=== PATIENT | female | born 1960 | race African-American/Black ===

== ENCOUNTER 2019-03-14 19:52 | Emergency (ER) | payer OTHER ==
[~2019-03-14] VITALS: Ht 167.6 cm; Wt 87.0 kg
[2019-03-14] MEDS ORDERED: SODIUM CHLORIDE 0.9% 1,000 ML IV ONE (21:00)
[2019-03-14] MEDS ORDERED: FUROSEMIDE 100MG/10ML VIAL IVP ONE (22:15)
[2019-03-14] MEDS ORDERED: IPRATROPIUM BROMIDE (0.02%) 0.5MG/2.5ML NEB HHN STA (22:43)
[2019-03-14] MEDS ORDERED: ALBUTEROL (0.083%) 2.5MG/3ML NEB HHN STA (22:43)
[2019-03-14 23:35] LABS: BASOPHILS % 0.4 % (0.0-2.0); HEMATOCRIT. 41.9 % (36.0-48.0); HEMOGLOBIN. 13.7 g/dL (12.0-16.0); LYMPHOCYTES % 18.8 % (20.0-50.0); MEAN CORPUSCULAR HEMOGLOBIN 31.8 pg (28.0-32.0); MEAN CORPUSCULAR VOLUME 96.7 fL (81.0-99.0); MEAN PLATELET VOLUME 9.4 fl (7.4-10.4); MONOCYTES % 14.1 % (2.0-8.0); NEUTROPHILS % 66.7 % (40.0-76.0); PLATELET 132 x1000/uL (130-400); RED BLOOD CELL COUNT 4.33 mill/uL (4.2-5.4); RED CELL DISTRIBUTION WIDTH 18.8 % (11.6-14.6)
[2019-03-14 23:37] LABS: CHLORIDE 105 mEq/L (98-107)
[2019-03-15 00:57] VITALS: BP 112/59
[2019-03-19] MEDS ORDERED: ALBU2.5V13 HHN ×2 (20:42)
[2019-03-19] MEDS ORDERED: FURO10VI3 IVP (20:42)
[2019-03-19] MEDS ORDERED: LOV40 SUBCUT (20:42)
== END 2019-03-15 01:59 | disposition short-term general hospital (02) ==
LOC: ER 19:52
DX: E87.70 Fluid overload, unspecified (principal); R55 Syncope and collapse; J45.909 Unspecified asthma, uncomplicated; I11.0 Hypertensive heart disease with heart failure; I50.9 Heart failure, unspecified; M79.602 Pain in left arm; M79.601 Pain in right arm; F17.200 Nicotine dependence, unspecified, uncomplicated
CPT/HCPCS: 36415; 71045; 73080; 73090; 73110; 80053; 84484; 85025; 93005; 94640; 96374; 99285; J1940; J7030; J7611; Z7610

== ENCOUNTER 2019-03-16 23:04 | Inpatient (IN) | payer OTHER ==
[~2019-03-16] VITALS: Ht 172.7 cm; Wt 92.1 kg
[2019-03-17] VITALS (10 sets, daily range): BP systolic 88–157; BP diastolic 44–76
[2019-03-17] MEDS ORDERED: FUROSEMIDE 40MG/4ML VIAL IV ONE
[2019-03-17 00:22] LABS: BASOPHILS % 0.3 % (0.0-2.0); EOSINOPHILS % 1.2 % (0.0-5.0); HEMATOCRIT. 43.5 % (36.0-48.0); LYMPHOCYTES % 30.9 % (20.0-50.0); MEAN CORPUSCULAR HEMOGLOBIN 32.1 pg (28.0-32.0); MEAN CORPUSCULAR VOLUME 99.7 fL (81.0-99.0); MONOCYTES % 11.4 % (2.0-8.0); NEUTROPHILS % 56.2 % (40.0-76.0); RED BLOOD CELL COUNT 4.36 mill/uL (4.2-5.4); RED CELL DISTRIBUTION WIDTH 20.2 % (11.6-14.6)
[2019-03-17 00:29] LABS: CHLORIDE 106 mEq/L (98-107)
[2019-03-17] MEDS ORDERED: INSULIN REGULAR (HUMULIN R) 300UNITS/3ML IV SCH (01:00)
[2019-03-17] MEDS ORDERED: DEXTROSE 50% WATER 50ML SYRINGE IV SCH (01:00)
[2019-03-17 01:38] LABS: MEAN PLATELET VOLUME 8.1 fl (7.4-10.4); PLATELET 108 x1000/uL (130-400)
[2019-03-17] MEDS ORDERED: CALCIUM GLUCONATE 1,000 MG in DEXT 5% WATER 100 ML IV SCH (02:00)
[2019-03-17] MEDS ORDERED: SODIUM POLYSTYRENE SULFONATE 15 G/60 ML BOT PO SCH (06:15)
[2019-03-17] MEDS ORDERED: LIDOCAINE HCL/PF 1% 2ML VIAL ONE (08:06)
[2019-03-17] MEDS ORDERED: ALBUTEROL (0.083%) 2.5MG/3ML NEB HHN PRN (08:30)
[2019-03-17] MEDS: ENOXAPARIN 30MG/0.3ML SYR SUBCUT SCH (08:40)
[2019-03-17] MEDS: FUROSEMIDE 40MG/4ML VIAL IVP SCH (08:40)
[2019-03-17] MEDS ORDERED: FURO-152 PO (09:27)
[2019-03-17] MEDS ORDERED: ALBUTEROL INH (09:27)
[2019-03-17 12:11] LABS: BG BASE EXCESS -5.1 mmol/L (-2.0-2.0); BG BILEVEL POS AIRWAY PRESSURE 15/5; BG CARBOXYHEMOGLOBIN 0.4 % (0.5-1.5); BG DEOXYHEMOGLOBIN 3.4 % (0.0-5.0); BG FRACTION INSPIRED OXYGEN 40; BG METHEMOGLOBIN 0.2 % (0.0-1.5); BG OXYGEN SATURATION 96.6 % (92.0-98.5); BG PCO2 42.6 mmHg (35.0-45.0); BG PO2 89.3 mmHg (75.0-100.0); BG SAMPLE SITE RIGHT RADIAL; BG TOTAL HEMOGLOBIN 13.1 g/dL (12.0-18.0); BG VENT MODE MASK - BIPAP
[2019-03-17 12:55] LABS: T4 FREE 1.2 ng/dL (0.76-1.46)
[2019-03-17] MEDS: ALBUTEROL (0.083%) 2.5MG/3ML NEB HHN SCH ×2 (15:33→21:05)
[2019-03-17 17:27] LABS: HEMATOCRIT. 38.3 % (36.0-48.0); HEMOGLOBIN. 12.5 g/dL (12.0-16.0); MEAN CORPUSCULAR VOLUME 98.2 fL (81.0-99.0); MEAN PLATELET VOLUME 8.9 fl (7.4-10.4); PLATELET 141 x1000/uL (130-400); RED CELL DISTRIBUTION WIDTH 19.7 % (11.6-14.6)
[2019-03-17 17:32] LABS: CREATINE KINASE MB FRACTION 11.7 ng/mL (0.5-3.6)
[2019-03-17 17:46] LABS: CHLORIDE 106 mEq/L (98-107)
[2019-03-17 18:35] LABS: CLARITY URINE CLOUDY (CLEAR); COLOR URINE DARK YELLOW (YELLOW); KETONES URINE TRACE (NEGATIVE); LEUKOCYTE ESTERASE URINE 2+ (NEGATIVE); NITRITE URINE NEGATIVE (NEGATIVE); OCCULT BLOOD URINE 1+ (NEGATIVE); PROTEIN URINE 1+ (NEGATIVE); SPECIFIC GRAVITY URINE 1.017 (1.005-1.030)
[2019-03-17 19:36] LABS: *AMPHETAMINES SCREEN URINE NEGATIVE (NEGATIVE)
[2019-03-17 19:37] LABS: *BARBITURATES SCREEN URINE NEGATIVE (NEGATIVE); *BENZODIAZEPINES SCREEN URINE NEGATIVE (NEGATIVE); *COCAINE SCREEN URINE NEGATIVE (NEGATIVE); METHADONE URINE SCREEN NEGATIVE (NEGATIVE); OPIATES URINE SCREEN NEGATIVE (NEGATIVE); PHENCYCLIDINE URINE SCREEN NEGATIVE (NEGATIVE)
[2019-03-17 19:37] LABS: NUCLEATED RED BLOOD CELLS 3 /100 WBC; PLATELET ESTIMATE NORMAL
[2019-03-17 19:38] LABS: CANNABINOID URINE SCREEN NEGATIVE (NEGATIVE)
[2019-03-18] VITALS (14 sets, daily range): BP systolic 95–112; BP diastolic 45–67
[2019-03-18 07:35] LABS: BASOPHILS % 0.3 % (0.0-2.0); EOSINOPHILS % 0.2 % (0.0-5.0); HEMATOCRIT. 36.8 % (36.0-48.0); HEMOGLOBIN. 11.8 g/dL (12.0-16.0); LYMPHOCYTES % 17.6 % (20.0-50.0); MEAN CORPUSCULAR HEMOGLOBIN 31.5 pg (28.0-32.0); MEAN CORPUSCULAR VOLUME 98.4 fL (81.0-99.0); NEUTROPHILS % 68.9 % (40.0-76.0); PLATELET 136 x1000/uL (130-400); RED BLOOD CELL COUNT 3.74 mill/uL (4.2-5.4); RED CELL DISTRIBUTION WIDTH 19.9 % (11.6-14.6)
[2019-03-18 07:36] LABS: INR 1.3; PROTHROMBIN TIME 13.3 sec (9.6-11.0)
[2019-03-18] MEDS: ALBUTEROL (0.083%) 2.5MG/3ML NEB HHN SCH ×3 (07:57→20:58)
[2019-03-18] MEDS: FUROSEMIDE 40MG/4ML VIAL IVP SCH ×2 (08:52→16:19)
[2019-03-18] MEDS: ENOXAPARIN 30MG/0.3ML SYR SUBCUT SCH (08:53)
[2019-03-18 09:03] LABS: CHLORIDE 105 mEq/L (98-107)
[2019-03-18 09:46] LABS: PHOSPHORUS 4.2 mg/dL (2.5-4.9)
[2019-03-18 09:50] LABS: CREATINE KINASE 275 IU/L (26-192)
[2019-03-18 09:53] LABS: CREATINE KINASE MB FRACTION 10.2 ng/mL (0.5-3.6)
[2019-03-18 14:58] LABS: HEPATITIS B SURFACE ANTIGEN NEGATIVE
[2019-03-19] VITALS (11 sets, daily range): BP systolic 90–123; BP diastolic 44–76
[2019-03-19] MEDS: ALBUTEROL (0.083%) 2.5MG/3ML NEB HHN SCH ×3 (00:50→14:50)
[2019-03-19 07:38] LABS: BASOPHILS % 0.5 % (0.0-2.0); EOSINOPHILS % 0.5 % (0.0-5.0); HEMATOCRIT. 38.6 % (36.0-48.0); HEMOGLOBIN. 12.2 g/dL (12.0-16.0); LYMPHOCYTES % 24.5 % (20.0-50.0); MEAN CORPUSCULAR HEMOGLOBIN 31.5 pg (28.0-32.0); MEAN CORPUSCULAR VOLUME 99.3 fL (81.0-99.0); MEAN PLATELET VOLUME 8.6 fl (7.4-10.4); MONOCYTES % 13.3 % (2.0-8.0); NEUTROPHILS % 61.2 % (40.0-76.0); PLATELET 126 x1000/uL (130-400); RED BLOOD CELL COUNT 3.89 mill/uL (4.2-5.4); RED CELL DISTRIBUTION WIDTH 20.4 % (11.6-14.6)
[2019-03-19] MEDS: FUROSEMIDE 40MG/4ML VIAL IVP SCH ×2 (07:56→18:34)
[2019-03-19] MEDS: ENOXAPARIN 30MG/0.3ML SYR SUBCUT SCH (08:04)
[2019-03-19 08:06] LABS: CHLORIDE 106 mEq/L (98-107)
[2019-03-19 08:12] LABS: PHOSPHORUS 4.5 mg/dL (2.5-4.9)
[2019-03-19 08:13] LABS: *CREATININE RANDOM URINE 144.9 mg/dL (Not Estab.); MICROALBUMIN RANDOM URINE 232.4 ug/mL (Not Estab.)
[2019-03-19 15:04] LABS: BG DEOXYHEMOGLOBIN 9.5 % (0.0-5.0); BG HCO3 ACT 22.2 mmol/L (22.0-26.0); BG METHEMOGLOBIN 0.1 % (0.0-1.5); BG OXYGEN SATURATION 90.4 % (92.0-98.5); BG OXYHEMOGLOBIN 89.4 % (94.0-97.0); BG PCO2 40.1 mmHg (35.0-45.0); BG PH 7.361 (7.350-7.450); BG PO2 61.5 mmHg (75.0-100.0); BG SAMPLE SITE RIGHT RADIAL; BG VENT MODE ROOM AIR
[2019-03-19] MEDS ORDERED: LOV40 SUBCUT (20:42)
[2019-03-19] MEDS ORDERED: FURO10VI3 IVP (20:42)
[2019-03-19] MEDS ORDERED: ALBU2.5V13 HHN ×2 (20:42)
[2019-03-20] MEDS ORDERED: ENOXAPARIN 40MG/0.4ML SYR SUBCUT SCH (09:00)
== END 2019-03-19 21:27 | disposition short-term general hospital (02) | DRG 292 ==
LOC: ER 23:04 → 3WST 03-17 01:53 → EDBEDREQSVC 03-17 02:04 → EDBEDREQTM 03-17 02:04 → EDBEDREQ 03-17 02:04 → ENRESERV 03-17 04:04 → 3WST 03-17 05:31
PROVIDERS: ADMIT Family Medicine; ATTEND Family Medicine
PROC: 02HV33Z Insertion of Infusion Device into Superior Vena Cava, Percutaneous Approach (ICD-10-PCS; principal; 2019-03-17)
PROC: B548ZZA Ultrasonography of Superior Vena Cava, Guidance (ICD-10-PCS; 2019-03-17)
PROC: 5A09357 Assistance with Respiratory Ventilation, Less than 24 Consecutive Hours, Continuous Positive Airway Pressure (ICD-10-PCS; 2019-03-17)
PROC: 5A09357 Assistance with Respiratory Ventilation, Less than 24 Consecutive Hours, Continuous Positive Airway Pressure (ICD-10-PCS; 2019-03-18)
DX: I13.0 Hypertensive heart and chronic kidney disease with heart failure and stage 1 through stage 4 chronic kidney disease, or unspecified chronic kidney disease (principal); E46 Unspecified protein-calorie malnutrition; N17.9 Acute kidney failure, unspecified; G93.40 Encephalopathy, unspecified; J98.11 Atelectasis; E87.4 Mixed disorder of acid-base balance; D69.6 Thrombocytopenia, unspecified; E87.5 Hyperkalemia; I07.1 Rheumatic tricuspid insufficiency; I27.20 Pulmonary hypertension, unspecified; I50.9 Heart failure, unspecified; F41.9 Anxiety disorder, unspecified; J45.909 Unspecified asthma, uncomplicated; K76.0 Fatty (change of) liver, not elsewhere classified; K80.20 Calculus of gallbladder without cholecystitis without obstruction; N18.9 Chronic kidney disease, unspecified; Z87.891 Personal history of nicotine dependence; Z88.1 Allergy status to other antibiotic agents; Z91.81 History of falling; Z68.30 Body mass index [BMI] 30.0-30.9, adult; Z79.51 Long term (current) use of inhaled steroids; Z79.899 Other long term (current) drug therapy
CPT/HCPCS: 36415; 36600; 71045; 73110; 76700; 76937; 78580; 80048; 80061; 80305; 82043; 82140; 82248; 82375; 82550; 82553; 82570; 82805; 82962; 83036; 83605; 83735; 83880; 84100; 84300; 84439; 84443; 84484; 85379; 86803; 87340; 93005; 93306; 93970; 94640; 94660; 96374; 96375; 97110; 97162; 97530; 99291; C1725; J0610; J1650; J1815; J1940; J3490; J7060; J7611; A4315